=== PATIENT | female | born 1965 ===

== ENCOUNTER 2023-04-25 08:33 | Inpatient (IN) | payer MEDICARE, OTHER ==
[2023-04-25] VITALS (39 sets, daily range): BP systolic 108–150; BP diastolic 73–120
[~2023-04-25] VITALS: Ht 167.6 cm; Wt 65.2 kg
--- NOTE | 2023-04-25 11:50 | NUR ---
PT ARRIVES VIA EMS AT AROUND 1045 AM, ON VENTILATOR PROPOFOL GTT, VERSED GTT, AND RECEIVING 60MEQ K+. PT'S WRISTS RESTRAINED, OGT CLAMPED, TORRES TO GRAVITY DRAINAGE, PIV X 3, 18G RIJ, 18G LAC, 20G RAC. MULTIPLE BRUISES NOTED ACROSS HER THIGHS, FEET VERY DIRTY, NECK LEFT SIDE WITH BRUISING AND CIRCULAR MARKINGS. HR SINUS, BP STABLE, TEMP WNL. AND IN TO SEE PT. THEN IN TO SEE PT. CHEST XRAY AND LABS DONE.
[2023-04-25 12:19] LABS: BASOPHILS ABSOLUTE AUTO 0.01 K/mm3 (0.00-0.23); BASOPHILS PERCENT AUTO 0 % (0-2); EOSINOPHILS PERCENT AUTO 0 % (0-6); Hematocrit 37.7 % (33.0-53.0); Hemoglobin 12.7 g/dL (11.5-17.5); IMMATURE GRAN ABSOLUTE AUTO 0.02 K/mm3 (0.00-0.10); IMMATURE GRAN PERCENT AUTO 0 % (0-1); LYMPHOCYTES ABSOLUTE AUTO 0.36 K/mm3 (0.84-5.20); LYMPHOCYTES PERCENT AUTO 5 % (21-46); MONOCYTES ABSOLUTE AUTO 0.07 K/mm3 (0.16-1.47); MONOCYTES PERCENT AUTO 1 % (4-13); Mean Corpuscular HGB 31.5 pg (26.0-34.0); Mean Corpuscular HGB Conc 33.7 g/dL (31.5-36.5); Mean Corpuscular Volume 94 fL (80-100); Mean Platelet Volume 10.8 fL (9.1-12.4); NEUTROPHILS ABSOLUTE AUTO 7.02 K/mm3 (1.96-9.15); NEUTROPHILS PERCENT AUTO 94 % (41-73); Platelet Count 238 K/mm3 (150-400); RDW Coefficient Variation 13.7 % (11.7-14.2); RDW Standard Deviation 47.1 fL (35.1-46.3); Red Blood Cell Count 4.03 M/mm3 (3.80-5.90); White Blood Cell Count 7.48 K/mm3 (4.00-11.30)
[2023-04-25 12:33] LABS: International Normalized Ratio 1.07; Prothrombin Time Results 11.2 Sec (9.7-11.5)
[2023-04-25 12:44] LABS: Magnesium, Blood 2.1 mg/dL (1.6-2.4)
[2023-04-25 12:48] LABS: Alanine Aminotransfer (ALT/SGP 19 U/L (12-78); Albumin, Blood 3.5 g/dL (3.4-5.0); Albumin/Globulin Ratio 1.3 (0.8-1.8); Alk Phos 70 U/L (50-136); Anion Gap 7 mmol/L (6-16); Aspartate Aminotrans (AST/SGOT 19 U/L (12-37); Bilirubin, Total 0.2 mg/dL (0.1-1.0); Blood Urea Nitrogen 15 mg/dL (8-24); Bun/Creatinine Ratio 24.8 (12.0-20.0); CO2, Blood 19 mmol/L (21-32); Calcium, Blood 8.5 mg/dL (8.5-10.1); Chloride, Blood 117 mmol/L (98-108); Creatinine, Blood 0.61 mg/dL (0.40-1.20); Globulin, Blood 2.7 g/dL (2.2-4.0); Glucose, Blood 147 mg/dL (70-99); Phosphorus, Blood 1.6 mg/dL (2.5-4.9); Potassium, Blood 3.8 mmol/L (3.5-5.5); Sodium, Blood 143 mmol/L (136-145); Total Protein, Blood 6.2 g/dL (6.4-8.2)
[2023-04-25] MEDS ORDERED: TOPI100 (14:06)
[2023-04-25] MEDS ORDERED: MAGNESIUM OXID500 MG (14:07)
[2023-04-25] MEDS ORDERED: Colace100 MG PO (14:07)
[2023-04-25] MEDS ORDERED: CALCIUM CARBON500 M1 (14:08)
[2023-04-25] MEDS ORDERED: MULVITA PO (14:08)
[2023-04-25] MEDS ORDERED: FISH OIL 1,2001 EAC4 (14:08)
[2023-04-25] MEDS ORDERED: OMEP20ER PO (14:09)
[2023-04-25 17:01] LABS: Source, Urine Foley catheter
[2023-04-25 17:04] LABS: Appearance, Urine Clear (Clear); Bilirubin, Urine Neg (Neg); Blood, Urine Neg (Neg); Color, Urine Yellow (P-Yellow); Glucose Qualitative, Urine Neg (Neg); Ketones, Urine Neg (Neg); Leukocyte Esterase, Urine Neg (Neg); Nitrite, Urine Neg (Neg); Protein, Urine 1+ (Neg); Specific Gravity, Urine 1.015 (1.003-1.022); Urobilinogen, Urine NORM (Normal)
--- NOTE | 2023-04-25 19:23 | NUR ---
BEBETO CONTINUES ON THE VENTILATOR, SETTINGS UNCHANGED T/O THE DAY. AC/VC 16/400/5/30%. SHE MAINTAINS SATS >97%. SHE DOES RETURN MODERATE AMOUNT OF WHITE RETURN FROM ET SUCTION. SHE SHAKES HER HEAD THAT IT WAS A "REACTION TO SOMETHING". PROPOFOL @ 50MCG/KG AND PT IS AWARE ENOUGH TO ANSWER QUESTIONS WITH HEAD NOD AND SHAKE. SHE IS ABLE TO REST BETWEEN INTERRUPTIONS. HER OGT REMAINS CLAMPED, ABDOMEN SOFT, NON TENDER, TORRES WITH GOOD CLEAR URINE OUTPUT. PT IS ABLE TO MAEW AND FOLLOW DIRECTIONS. SHE DOES LIVE ALONE, DAUGHTER GERI WAS HERE TO VISIT. PHONE NUMBER ON THE WHITE BOARD.
[2023-04-26] VITALS (54 sets, daily range): BP systolic 92–134; BP diastolic 60–110
[2023-04-26 03:58] LABS: BASOPHILS ABSOLUTE AUTO 0.01 K/mm3 (0.00-0.23); BASOPHILS PERCENT AUTO 0 % (0-2); EOSINOPHILS PERCENT AUTO 0 % (0-6); Hematocrit 37.6 % (33.0-53.0); Hemoglobin 13.2 g/dL (11.5-17.5); IMMATURE GRAN ABSOLUTE AUTO 0.03 K/mm3 (0.00-0.10); IMMATURE GRAN PERCENT AUTO 0 % (0-1); LYMPHOCYTES ABSOLUTE AUTO 0.98 K/mm3 (0.84-5.20); LYMPHOCYTES PERCENT AUTO 10 % (21-46); MONOCYTES ABSOLUTE AUTO 0.35 K/mm3 (0.16-1.47); MONOCYTES PERCENT AUTO 4 % (4-13); Mean Corpuscular HGB 31.8 pg (26.0-34.0); Mean Corpuscular HGB Conc 35.1 g/dL (31.5-36.5); Mean Corpuscular Volume 91 fL (80-100); Mean Platelet Volume 10.9 fL (9.1-12.4); NEUTROPHILS ABSOLUTE AUTO 8.35 K/mm3 (1.96-9.15); NEUTROPHILS PERCENT AUTO 86 % (41-73); Platelet Count 251 K/mm3 (150-400); RDW Coefficient Variation 14.2 % (11.7-14.2); RDW Standard Deviation 47.3 fL (35.1-46.3); Red Blood Cell Count 4.15 M/mm3 (3.80-5.90); White Blood Cell Count 9.72 K/mm3 (4.00-11.30)
[2023-04-26 05:58] LABS: Alanine Aminotransfer (ALT/SGP 18 U/L (12-78); Albumin, Blood 3.4 g/dL (3.4-5.0); Albumin/Globulin Ratio 1.2 (0.8-1.8); Alk Phos 69 U/L (50-136); Anion Gap 8 mmol/L (6-16); Aspartate Aminotrans (AST/SGOT 16 U/L (12-37); Bilirubin, Total 0.3 mg/dL (0.1-1.0); Blood Urea Nitrogen 14 mg/dL (8-24); CO2, Blood 19 mmol/L (21-32); Calcium, Blood 8.5 mg/dL (8.5-10.1); Chloride, Blood 115 mmol/L (98-108); Creatinine, Blood 0.58 mg/dL (0.40-1.20); Globulin, Blood 2.8 g/dL (2.2-4.0); Glucose, Blood 131 mg/dL (70-99); Potassium, Blood 3.7 mmol/L (3.5-5.5); Sodium, Blood 142 mmol/L (136-145); Total Protein, Blood 6.2 g/dL (6.4-8.2)
[2023-04-26 06:33] LABS: Magnesium, Blood 2.3 mg/dL (1.6-2.4)
--- NOTE | 2023-04-26 06:48 | NUR ---
NOC SHIFT SUMMARY NEURO: SEDATED, FOLLOWS ALL COMMANDS DESPITE PROPOFOL, FENTANYL IVP PRN TO ADJUNCT SEDATION, PT C/O THROAT PAIN. CARDIAC: SR, BP WNL. RESP: 7.5 ETT/23 AT THE LIPS. AC/VC 16/400/5/21%. LUNGS CLEAR/DIM BASES. GI: OGT CLAMPED. BS NORMOACTIVE, NO BM THIS SHIFT. : TORRES TO GRAVITY, ADEQUATE UO. SKIN: INTACT. CHG BATH DONE. TURNED EVERY 2 HOURS TO MAINTAIN SKIN INTEGRITY. IV: PIV X3, RAC INFUSING. LAC AND REJ BOTH SL, BOTH FLUSH WELL. NO FAMILY AT BEDSIDE. PT INTUBATED AND SEDATED. WILL CONTINUE TO ASSESS RISK POST EXTUBATION, NO IGNITION SOURCES IDENTIFED IN ROOM, NO FAMILY PRESENT.
--- NOTE | 2023-04-26 07:26 | NUR ---
FIRE SAFETY PT INTUBATED AND LIGHTLY SEDATED, BUT STILL ABLE TO FOLLOW COMMANDS. PT EDUCATED ON RISKS REGARDING IGNITION SOURCES AND RISK OF INJURY WHILE ON OXYGEN. PT ODS UNDERSTANDING, BUT WILL CONTINUE TO ASSESS RISK AND AND NEED FOR FURTHER EDUCATION.
--- NOTE | 2023-04-26 11:08 | NUR ---
EXTUBATE AND METAL CRAFTS TEACHER PT WAS DOING WELL ON SPONTANEOUS THIS MORNING EVEN WITH PROPOFOL INFUSING. SHE WAS AWAKE AND VERY ANXIOUS. DR. GUPTA ROUNDED ON HER AND GAVE OK TO EXTUBATE. SHANE RT EXTUBATED PT AT 0830. SHORTLY AFTER EXTUBATION, PT STARTED COMPLAINING OF SOME CHEST PAIN. DR. HAM NOTIFIED ANDORDERED TROPONINS AND EKG. WHILE WAITING FOR TROPONINS PT GOT VERY ANXIOUS, UPPER AIRWAY SOUNDS BECAME VERY STRIDOROUS AND PT WAS COMPLAINING THAT SHE COULDN'T BREATHE. DR. HAM TO THE BEDSIDE AND ORDERED VERSED. DOSE CONFIRMED WITH MD BEFORE ADMINSITERING. WITH THE VERSED PT RELAXED AND BREATHING BECAME UNLABORED AND LUNGS SOUNDS WERE CLEAR. TROPONIN CAME BACK ELEVATED AND AFTE REVIEWING EKG DR. HAM AND ALONSO ORDERED CARDIOLOGY CONSULT. DR. MATA SAW PT AND DR. NOLASCO WILL SEE PT IN METAL CRAFTS TEACHER. METAL CRAFTS TEACHER TEAM JUST CAME AND TOOK PT TO METAL CRAFTS TEACHER VIA BED.
--- NOTE | 2023-04-26 12:10 | NUR ---
PT BACK FROM SYSTEMS PROGRAM MANAGER. RESTING QUIETLY WITH EYES CLOSED. DAUGHTER AT BEDSIDE. TR BAND IN PLACE AND SITE IS C/D/I WITH NO SIGNS OF HEMATOMA.
--- NOTE | 2023-04-26 17:19 | NUR ---
SHIFT SUMMARY PT HAS NOT HAD ANYMORE ANXIETY OR CHEST PAIN EPISODES SINCE THIS MORNING. SHE IS ALERT AND ORIENTED. SR, BP STABLE. AIR CAME OUT OF TR BAND WITHOUT COMPLICATIONS. SITE IS C/D/I, SOFT. PT IS NOT SHOWING ANY S/S OF ASPIRATION WITH SWALLOWING TRIALS. SHE STATES HER THROAT IS SORE AND FEELS A LITTLE SWOLLEN, BUT HAS BEEN TOLERATING SOFT FOODS. TORRES REMOVED AT 1530, AWAITING FIRST VOID SINCE. PT'S BRAYAN HAS REMAINED AT THE BEDSIDE AND BEEN UPDATED WELL THROUGHOUT THE DAY. CONTINUING TO MONITOR.
--- NOTE | 2023-04-26 18:24 | NUR ---
MIGRAINE PT ALL OF A SUDDEN HAD LARGE JERKING MOVEMENTS, ALMOST LIEK SHE WAS ROCKING HERSELF BACK AND FORTH. PT'S BRAYAN AT [facility] SAID THIS IS WHAT HAPPENS WHEN SHE HAS A MIGRAINE. PT WAS MOANING, DIFFICULTY SPEAKING. PT GIVEN FENTANYL AND THEN FIORICET GIVEN AFTER IT WAS RETRIEVED FROM PHARMACY. PT'S SWALLOWING TESTED FIRST WITH SIPS OF WATER AND APPEARED TO BE INTACT. ICE PACK PLACED BEHIND NECK AND LIGHTS IN THE ROOM TURNED DOWN. 30 MINUTES AFTER RECEIVING FIORICET PT IS RESTING CALMLY IN BED, TALKING APPROPRIATELY WITH HER DAUGHTER, MOVING ALL EXTREMITIES.
--- NOTE | 2023-04-26 19:40 | NUR ---
ASSUMED CARE PT IS A&O X4; SPO2 >92% ON RA; MAP >65. NO C/O CP OR SOB. STATES SHE IS A "LITTLE DIZZY", BUT OTHERWISE FEELS "GOOD". PT'S DAUGHTER AT BEDSIDE AT START OF SHIFT. PT AND PT'S DAUGHTER EDUCATED ABOUT SMOKING AND OXYGEN; BOTH DENY HAVING ANY SMOKING PARAPHERNILIA/COMBUSTIBLE ITEMS.
[2023-04-27] VITALS (11 sets, daily range): BP systolic 93–129; BP diastolic 57–97
--- NOTE | 2023-04-27 00:45 | NUR ---
UPDATE HEARD PT IN RESPIRATORY DISTRESS AND PT TOLD THIS RN THAT IT FELT LIKE HER THROAT WAS CLOSING UP; PT WAS TACHYCARDIC IN THE 130~'S, TACHYPNEIC, AND WAS MAKING WHEEZING SOUNDS. BANDAR HOLLIDAY CALLED TO BEDSIDE TO ASSIST AND DR PHIPPS CALLED FOR RACEMIC EPI ORDER. RACEMIC EPI OVERRODE IN [facility], BUT NOT GIVEN (RETURNED TO [facility]) D/T PT HAVING CLEAR LUNG SOUNDS AND OPEN AIRWAY. 1MG OF ATIVAN GIVEN AND PT QUICKLY IMPROVED W/ RESPIRATORY RATE GOING BACK TO BASELINE AND LUNG SOUNDS IMMEDIATELY CLEARING.
--- NOTE | 2023-04-27 01:18 | NUR ---
UPDATE PUT 2L NC ON PT D/T PT SPO2 SITTING AROUND 90~%.
[2023-04-27 04:47] LABS: Magnesium, Blood 2.4 mg/dL (1.6-2.4)
[2023-04-27 04:58] LABS: Anion Gap 9 mmol/L (6-16); Blood Urea Nitrogen 17 mg/dL (8-24); Bun/Creatinine Ratio 25.5 (12.0-20.0); CO2, Blood 22 mmol/L (21-32); Calcium, Blood 8.4 mg/dL (8.5-10.1); Chloride, Blood 114 mmol/L (98-108); Creatinine, Blood 0.67 mg/dL (0.40-1.20); Glucose, Blood 152 mg/dL (70-99); Potassium, Blood 4.1 mmol/L (3.5-5.5); Sodium, Blood 145 mmol/L (136-145)
--- NOTE | 2023-04-27 05:23 | NUR ---
SHIFT SUMMARY PT HAS BEEN RESTING QUIETLY SINCE LAST UPDATE. UP TO USE RESTROOM ONCE, BUT OTHERWISE NO ACUTE EVENTS. VSS. SPO2 >92% ON 2L NC; MAP >65; NSR/SINUS PAYTON WHILE SLEEPING 50-60'S.
--- NOTE | 2023-04-27 07:39 | NUR ---
Assumed care at approximately 0700. Bedside report received from nightshift RN. Pt sleeping at time of report. VS stable, no acute needs. Will continue to monitor.
--- NOTE | 2023-04-27 17:08 | NUR ---
Discharged pt at 1600. Pt and family verbalized understanding of all discharge instructions. All personal belongings taken from unit by pt. Pt taken out to car via wheelchair by this RN. VS stable, no acute needs at time of discharge.
== END 2023-04-27 15:55 | disposition home or self-care (01) | DRG 208 ==
LOC: ICUE 08:33 → EDSEX 10:48 → ICUE 18:19
PROVIDERS: Family Medicine; Internal Medicine Critical Care Medicine; Student in an Organized Health Care Education/Training Program; ADMIT Internal Medicine
PROC: 0DH67UZ Insertion of Feeding Device into Stomach, Via Natural or Artificial Opening (ICD-10-PCS; 2023-04-25)
PROC: 0T9B70Z Drainage of Bladder with Drainage Device, Via Natural or Artificial Opening (ICD-10-PCS; 2023-04-25)
PROC: B2111ZZ Fluoroscopy of Multiple Coronary Arteries using Low Osmolar Contrast (ICD-10-PCS; principal; 2023-04-26)
PROC: 4A023N7 Measurement of Cardiac Sampling and Pressure, Left Heart, Percutaneous Approach (ICD-10-PCS; 2023-04-26)
PROC: 5A1935Z Respiratory Ventilation, Less than 24 Consecutive Hours (ICD-10-PCS; 2023-04-26)
PROC: 0BH17EZ Insertion of Endotracheal Airway into Trachea, Via Natural or Artificial Opening (ICD-10-PCS; 2023-04-26)
DX: J96.01 Acute respiratory failure with hypoxia (principal); I24.9 Acute ischemic heart disease, unspecified; D68.51 Activated protein C resistance; F41.8 Other specified anxiety disorders; E87.6 Hypokalemia; E83.39 Other disorders of phosphorus metabolism; J38.3 Other diseases of vocal cords; R94.31 Abnormal electrocardiogram [ECG] [EKG]; G89.29 Other chronic pain; S11.93XA Puncture wound without foreign body of unspecified part of neck, initial encounter; X58.XXXA Exposure to other specified factors, initial encounter; R77.8 Other specified abnormalities of plasma proteins; Z78.1 Physical restraint status; I12.9 Hypertensive chronic kidney disease with stage 1 through stage 4 chronic kidney disease, or unspecified chronic kidney disease; N18.9 Chronic kidney disease, unspecified; E78.5 Hyperlipidemia, unspecified; M79.7 Fibromyalgia; K21.9 Gastro-esophageal reflux disease without esophagitis; G43.909 Migraine, unspecified, not intractable, without status migrainosus; Z88.0 Allergy status to penicillin; Z86.73 Personal history of transient ischemic attack (TIA), and cerebral infarction without residual deficits; Z91.018 Allergy to other foods; Z79.82 Long term (current) use of aspirin; Z79.51 Long term (current) use of inhaled steroids; Z79.899 Other long term (current) drug therapy
CPT/HCPCS: 36415; 71045; 71260; 76937; 80048; 80053; 83735; 84100; 84484; 85025; 85610; 85730; 92610; 93306; 93458; 94002; 94003; 97116; 97162; 99152; A9270; C1769; C1887; C1894; J1644; J1650; J2060; J2250; J2704; J2930; J3010; J7030; J7040; J7050; J7060; Q9967